=== PATIENT | male | born 1985 | race Caucasian/White ===

== ENCOUNTER 2024-05-28 07:24 | Day surgery (SDC) | payer BC ==
[2024-05-28] MEDS ORDERED: HYDROmorphone 0.5 MG/0.5 ML SYRINGE IVP PRN (07:37)
[2024-05-28] MEDS ORDERED: LIDOCAINE 1% (10MG/ML) FOR IV START INTRADERMA PRN (07:37)
[2024-05-28] MEDS ORDERED: MIDAZOLAM 2 MG/2 ML VIAL IV PRN (07:37)
[2024-05-28] MEDS ORDERED: fentaNYL (PF) 50 MCG/ML 2 ML AMP IVP PRN (07:37)
[2024-05-28] MEDS: OXYMETAZOLINE 0.05% NASL SPRAY 1 SPRAY BOTTLE EA NOSTRIL PRN (07:47)
[2024-05-28] MEDS: IV FLUID CONTINUATION 1,000 ML IV ONE (07:57)
[2024-05-28] MEDS: LACTATED RINGERS 1,000 ML IV SCH (07:58)
[2024-05-28] MEDS: ONDANSETRON 4 MG/2 ML VIAL IVP ONE (07:58)
[2024-05-28] MEDS: FAMOTIDINE 20 MG/2 ML VIAL IV PRN (07:59)
[2024-05-28] MEDS: DEXAMETHASONE SOD PHOSPHATE 4 MG/ML 1 ML VIAL IV ONE (08:03)
[2024-05-28] MEDS ORDERED: PHENYLEPHRINE 10 MG/ML VIAL ONE (08:18)
[2024-05-28] MEDS ORDERED: SUCCINYLCHOLINE CHLORIDE 200 MG/10 ML VIAL IV ONE (08:18)
[2024-05-28] MEDS ORDERED: MIDAZOLAM 2 MG/2 ML VIAL ONE (08:18)
[2024-05-28] MEDS ORDERED: PROPOFOL 10 MG/ML 20 ML VIAL IV ONE (08:18)
[2024-05-28] MEDS ORDERED: LIDOCAINE 1% INJ 10MG/ML (20 ML MDV) ONE (08:18)
[2024-05-28] MEDS ORDERED: fentaNYL (PF) 50 MCG/ML 2 ML AMP ONE (08:18)
[2024-05-28] MEDS: LIDOCAINE 1%-EPI 1:100,000 20 ML VIAL SUBMUCOSAL ONE ×2 (08:30)
[2024-05-28] MEDS: BACITRACIN ZINC 500 UNIT/GM OINT 28.4 GM TUBE TOPICAL ONE (08:51)
--- NOTE | 2024-05-28 09:01 | P.OP ---
Date of Procedure: 05/28/24 Preoperative Diagnosis: deviated nasal septum Inferior turbinate hypertrophy Postoperative Diagnosis: same Procedure(s) Performed: septoplasty Outfracture and submucous resection of the inferior turbinates Anesthesia: TAMY Surgeon: Shaun Burdick Estimated Blood Loss (ml): 5 Pathology: other (nasal septal bone and cartilage) Condition: stable Disposition: PACU Indications for Procedure: is a 38-year-old white male whose had difficulties with chronic nasal airway obstruction and nasal airway congestion which is nonseasonal and has not improved with medical management Operative Findings: nasal septum deviated to the right anteriorly to the left posteriorly with inferior turbinate hypertrophy bilateral Description of Procedure: DESCRIPTION OF PROCEDURE: The patient was brought to the operative suite, placed in the supine position. The patient underwent induction of general anesthesia with oral endotracheal intubation without difficulty. The patient was prepped and draped in the usual aseptic fashion. 1% lidocaine with 1:100,000 epinephrine was infused submucosally on both sides of the nasal septum. While this was taking vasoconstrictive effect, the inferior turbinates were infractured with a Sullivan elevator. Partial submucous resection of the inferior turbinates was performed with Coblation device ablating a portion of the submucosal soft tissue. The inferior turbinates were then outfractured with a Sullivan elevator. A left hemitransfixion incision was then made through the mucoperichondrial. Mucoperiosteal flap on the left elevated. Bony cartilaginous junction was disarticulated and mucoperiosteal flap on the right was elevated. Bony nasoseptal deformity were removed with Kassidy forceps and an inferior cartilaginous strip was removed, leaving a full 1.5 cm caudal strut. Checking intranasally, this corrected the nasal septal deformities and the hemitransfixion incision was closed with running 4-0 chromic suture. The bilateral Witt airway splints coated in bacitracin ointment were placed in the nasal cavities and sutured transseptally with 4-0 nylon suture. The patient was then suctioned in an orogastric fashion. The patient was allowed to emerge from general anesthesia, having tolerated the procedure well and was extubated in the operating suite, transferred to postoperative recovery area in satisfactory condition.
[2024-05-28 09:18] VITALS: TEMP 98
[2024-05-28 09:51] VITALS: RESP 18
[2024-05-28 10:09] VITALS: BP 143/88; PULSE 92
== END 2024-05-28 10:35 | disposition home or self-care (01) ==
LOC: OR 07:24
PROVIDERS: ATTEND Otolaryngology
DX: J34.3 Hypertrophy of nasal turbinates (principal); J34.2 Deviated nasal septum
CPT/HCPCS: 88300

== ENCOUNTER → 2024-07-23 | Outpatient (CLI) | payer BC ==
[2024-07-23 17:06] VITALS: BP 141/82; PULSE 98; RESP 16; TEMP 98
--- NOTE | 2024-07-23 17:30 | P.SLEEP ---
History of Present Illness DATE: 07/23/2024 CONSULTATION/NEW PATIENT EVALUATION HISTORY OF PRESENT ILLNESS/SLEEP-WAKE EVALUATION: 38-year-old gentleman had b een evaluated in the sleep center for possible obstructive sleep apnea hypopnea syndrome. SLEEP SCHEDULE: Usually sleep schedule from 89 PM to 3 AM on working days and from 89 PM to 6 AM on weekend. FALLING ASLEEP: Patient does have problems with falling asleep, although no TV in bedroom. DURING SLEEP: Patient usually sleeps on the back position with snoring and awakenings from sleep 2 times. Positive history of grinding teeth, restless leg symptoms and dry mouth. No history of hypnogogical hallucinations, sleep paralysis, or cataplexy. DURING THE DAY/WAKE STATE: In the morning patient wake up tired, has episodes of irritability. [place] sleepiness scale is 1. Patient does not take naps. PAST MEDICAL HISTORY: Mostly negative. PAST SURGICAL HISTORY: Nasal surgery for septoplasty, left arm surgery for the finger problems. MEDICATIONS: None. SOCIAL HISTORY: Please see below. FAMILY HISTORY: Please see below. REVIEW OF SYSTEMS: Difficulties to initiate sleep, awakenings from sleep. No fevers. No double vision. No recent chest pain. No shortness of breath. No abdominal pain. No bleeding episodes. No blood in urine. No seizure episodes. PHYSICAL EXAMINATION: GENERAL: A pleasant patient without any distress. VITAL SIGNS: Please see below, weight 161 pounds, BMI 25.0. HEENT: PERRLA, EOMI. Evaluation of oropharynx showed tongue protrudes midline, low position of soft palate Mallampati 34, retrognathia 2 mm. NECK: Supple. No JVD. Thyroid is not palpable. 15.5 inches in circumference. LUNGS: Clear to percussion and to auscultation. Good air exchange. No wheezing or rhonchi. HEART: S1, S2 regular. No murmurs, gallops or rubs. ABDOMEN: Soft and nontender. Bowel sounds are present. No organomegaly appreciated. EXTREMITIES: No clubbing or cyanosis. RENT COLLECTOR: Awake, alert, and oriented x3. Cranial nerves 2 to 7 intact. There is no fasciculation or atrophy noted. No focal deficits observed. ASSESSMENT: 1. Snoring, awakenings from sleep, low position of soft palate Mallampati 3. Possible obstructive sleep apnea hypopnea syndrome. 2. Psychophysiological insomnia. 3. Status post nasal surgery for septoplasty. 4. Hypertension in the office. 5 status post finger surgery on the left. PLAN: 1. Home sleep apnea test for evaluation of patient's breathing during sleep. 2. Following plan after reading sleep study. 3. Preferable position during sleep on the side. 4. No driving if patient feels any sleepiness. Patient is aware of civil and criminal liability for unsafe driving. 5. Sleep hygiene with regular sleep time for at least 7.5-8 hours. 6. Watching weight. 7. I discussed stimulus control for psychophysiological insomnia. Thank you very much for referring this patient for consultation. Sincerely, Mekhi Rivera MD, PhD, FAASM. Diplomat of [place], Sleep Medicine Board by [employer] [employer] [employer] Museum Attendant of [facility] [place] cc: Shaun Burdick MD Past Medical History Past Medical History: No Reported History History of Any Multi-Drug Resistant Organisms: None Reported Additional Past Surgical History / Comment(s): tendon repair to finger, wisdom teeth, septoplasty Past Anesthesia/Blood Transfusion Reactions: No Reported Reaction Past Psychological History: No Psychological Hx Reported Smoking Status: Never smoker Past Alcohol Use History: Occasional Past Drug Use History: None Reported - Past Family History Father Family Medical History: Cancer Additional Family Medical History / Comment(s): liver Mother Additional Family Medical History / Comment(s): bone disorder, smoker Medications and Allergies Home Medications Medication Instructions Recorded Confirmed Type No Known Home Medications 05/23/24 05/28/24 History Allergies Allergy/AdvReac Type Severity Reaction Status Date / Time No Known Allergies Allergy Verified 05/28/24 07:38 Physical Exam Vitals: Vital Signs Temp Pulse Resp BP Pulse Ox 07/23/24 17:02 98 F 98 16 141/82 100 Intake and Output 07/23/24 07/23/24 07/23/24 06:59 14:59 22:59 Other: Weight 73.028 kg Sleep Note - Sleep Data ESS Total: 1 - Sleep Note Sleep Note: Temperature: 98 F Pulse Rate: 98 Respiratory Rate: 16 Blood Pressure: 141/82 SpO2: 100 Height: 5 ft 7.2 in Weight: 73.028 kg BMI: Neck Circumference: 15.5
== END ==
LOC: 3 N SLEEP 16:52
PROVIDERS: ATTEND Internal Medicine
DX: R06.83 Snoring (principal); F51.04 Psychophysiologic insomnia; I10 Essential (primary) hypertension; Z98.890 Other specified postprocedural states
CPT/HCPCS: 99211

== ENCOUNTER → 2024-08-07 | Outpatient (CLI) | payer BC ==
--- NOTE | 2024-08-11 11:55 | P.PCN ---
Description of Procedure: CLINICAL: A home sleep apnea test has been done for confirmation of possible obstructive sleep apnea-hypopnea syndrome. DESCRIPTION OF PROCEDURE: RESULTS: Recording time was 8 hours 50 minutes. Evaluation time was 8 hours 38 minutes. Evaluation time is sufficient for making conclusion about results of the test. Raw data of sleep recording has been reviewed and is adequate. Respiratory channel showed 160 apneas and 29 hypopneas. Apnea-hypopnea index was 21.9 per hour. Pulse rate in the range between minimum 67, maximum 117, average 82 by computer calculation. Lowest desaturation was 88%. IMPRESSION: 1. Obstructive Sleep Apnea Hypopnea Syndrome in moderate range. Please see other impressions from consultation. PLAN: 1. The patient will be started on auto-PAP treatment for correction of respiratory abnormallities during sleep. 2. I will see patient for follow up visit to discuss results of the test, evaluate clinical response on treatment with PAP therapy and make any necessary adjustments related to mask fitting, pressure, and humidification. 3. Watching weight. 4. Sleep hygiene with regular time in bed for at least 8 hours. 5. No driving if feeling any sleepiness. Thank you very much for allowing me to participate in the management of your patient. Sincerely, Mekhi Rivera MD, PhD, FAASM Diplomat of [place] [employer] Sleep Medicine Board of [place] [employer] Business Support Liaison of [facility] [place] cc: Shaun Buridck MD
== END ==
LOC: 3 N SLEEP 16:54
PROVIDERS: ATTEND Internal Medicine
DX: G47.33 Obstructive sleep apnea (adult) (pediatric) (principal)